=== PATIENT | male | born 1975 | race Caucasian/White ===

== ENCOUNTER → 2023-11-27 06:32 | Day surgery (SDC) | payer BC, SELFPAY | LOC: GI 06:32 | PROVIDERS: ATTENDING PHYSICIAN Internal Medicine Gastroenterology | DX: K22.89 Other specified disease of esophagus (principal); K31.7 Polyp of stomach and duodenum; K31.89 Other diseases of stomach and duodenum; Z87.19 Personal history of other diseases of the digestive system | CPT/HCPCS: 43239; 88305 ==